=== PATIENT | female | born 1980 | race Caucasian/White ===

== ENCOUNTER 2018-03-27 09:30 | Emergency (ER) | payer OTHER ==
[2018-03-27] MEDS ORDERED: ONDANSETRON 4 MG/2 ML VIAL IVP ONE (10:14)
[2018-03-27] MEDS ORDERED: fentaNYL 100 MCG/2 ML INJ IVP ONE ×2 (10:14→10:36)
[2018-03-27] MEDS ORDERED: ONDANSETRON 4 MG/2 ML VIAL ONE (10:15)
[2018-03-27] MEDS ORDERED: fentaNYL 100 MCG/2 ML INJ ONE (10:15)
[2018-03-27] MEDS ORDERED: IOPAMIDOL (ISOVUE-300) 100 ML BTL ONE (10:21)
--- NOTE | 2018-03-27 10:25 | EDPHY ---
H & P Time Seen by Provider: 03/27/18 09:53 HPI/ROS: CHIEF COMPLAINT: Abdominal pain HISTORY OF PRESENT ILLNESS: Patient sent over from Dr. Carrera's office. The doctor did call me to tell me about patient's presentation. Patient states that yesterday morning when she woke up she had lower abdominal pain. Initially felt pain in the center of her abdomen. She describes it as intense and"dagger like". She did go to a spin class in the morning and noticed the pain significantly then. The sharp dagger like pain is off and on. She says since it started yesterday it has gotten worse. She was unable to sleep well last night. She felt feverish and chilled. She has had multiple episodes of diarrhea and nausea but no vomiting. Also with bilateral low back pain consistent with being on her period, which she is on right now. She states it does feel similar to an ovarian cyst that she had 10 years ago which required surgical intervention. Also states she has a little bit bloated. She denies dysuria. No upper respiratory symptoms. No blood in stool. REVIEW OF SYSTEMS: Constitutional: No fever, some chills. Eyes: No discharge. ENT: No sore throat. Cardiovascular: No chest pain, no palpitations. Respiratory: No cough, no shortness of breath. Gastrointestinal: Per HPI. Genitourinary: No dysuria. Musculoskeletal: Bilateral low back pain, no extremity complaints, no neck pain Skin: No rashes. Neurological: No headache. General Appearance: Alert, no distress. Eyes: Pupils equal and round no pallor or injection. ENT, Mouth: Mucous membranes moist. Oropharynx clear, no lymphadenopathy. Respiratory: There are no retractions, lungs are clear to auscultation. Cardiovascular: Regular rate and rhythm. Gastrointestinal: Abdomen is soft, bowel sounds normal. Tenderness to palpation most in the right lower quadrant without guarding. Rovsing sign positive. Psoas sign positive. Neurological: Awake and alert no focal deficits. Skin: Warm and dry, no rashes. Musculoskeletal: Neck is supple nontender. Extremities are symmetrical, full range of motion, no edema. Psychiatric: Patient is oriented X 3, there is no agitation. Medical/surgical history: Anxiety, Lyme disease as child, ovarian cyst with laparoscopic. Pelvic fracture. Social history: Denies tobacco or drugs. Smoking Status: Former smoker Constitutional: Initial Vital Signs Temperature (C) 36.9 C 03/27/18 09:41 Heart Rate 102 H 03/27/18 09:41 Respiratory Rate 18 03/27/18 09:41 Blood Pressure 145/91 H 03/27/18 09:41 O2 Sat (%) 97 03/27/18 09:41 O2 Delivery Mode Room Air Allergies/Adverse Reactions: No Known Allergies Allergy (Unverified 03/27/18 09:40) Home Medications: Medication Instructions Recorded Lexapro 03/27/18 Propranolol Sr 03/27/18 Medical Decision Making - Diagnostics Imaging Results: Imaging Impressions Abdomen CT 03/27/18 10:15 Impression: 1. Negative for acute appendicitis. 2. Fluid-filled bowel, as can be seen with enterocolitis. 3. Pedunculated 1.4 cm fibroid arising from the left uterine fundus. Findings and recommendations discussed with Marivel Izquierdo MD at 1117 hour, 03/27/2018. Imaging: Discussed imaging studies w/ promotions representative Radiologist (no appendicitis) ED Course/Re-evaluation: 11:10 a.m., re-evaluate after CT scan. Patient still in significant pain. 11:[address] results with patient, likely colitis, no signs of appendicitis. Will try p.o. Challenge. Still in pain. Differential Diagnosis: Differential diagnosis includes but is not limited to appendicitis, ovarian cyst , pyelonephritis, enteritis, colitis. After evaluation including labs and CT scan no evidence of appendicitis, urinary tract infection, bowel obstruction. Likely colitis per Radiology report. Patient with fairly significant pain requiring multiple doses of opiate medications. Will also send home with 6 pack of [place]. Strongly recommended she get rechecked tomorrow by her primary care physician or return to the emergency department if symptoms worsen as detailed in discharge instructions. Also with mild hypokalemia treated with oral potassium in the emergency department. - Data Points Laboratory Results: Laboratory Results 03/27/18 09:55 03/27/18 03/27/18 09:56 09:55 WBC 7.49 10^3/uL 10^3/uL (3.80-9.50) RBC 4.82 10^6/uL 10^6/uL (4.18-5.33) Hgb 15.2 g/dL g/dL (12.6-16.3) Hct 44.8 % % (38.0-47.0) MCV 92.9 fL fL (81.5-99.8) MCH 31.5 pg pg (27.9-34.1) MCHC 33.9 g/dL g/dL (32.4-36.7) RDW 12.4 % % (11.5-15.2) Plt Count 231 10^3/uL 10^3/uL (150-400) MPV 9.4 fL fL (8.7-11.7) Neut % (Auto) 85.1 % H % (39.3-74.2) Lymph % (Auto) 8.7 % L % (15.0-45.0) Stokes % (Auto) 5.1 % % (4.5-13.0) Eos % (Auto) 0.3 % L % (0.6-7.6) Baso % (Auto) 0.3 % % (0.3-1.7) Nucleat RBC Rel Count 0.0 % % (0.0-0.2) Absolute Neuts (auto) 6.38 10^3/uL 10^3/uL (1.70-6.50) Absolute Lymphs (auto) 0.65 10^3/uL L 10^3/uL (1.00-3.00) Absolute Monos (auto) 0.38 10^3/uL 10^3/uL (0.30-0.80) Absolute Eos (auto) 0.02 10^3/uL L 10^3/uL (0.03-0.40) Absolute Basos (auto) 0.02 10^3/uL 10^3/uL (0.02-0.10) Absolute Nucleated RBC 0.00 10^3/uL 10^3/uL (0-0.01) Immature Gran % 0.5 % % (0.0-1.1) Immature Gran # 0.04 10^3/uL 10^3/uL (0.00-0.10) POC Sodium 141 mEq/L mEq/L (135-145) POC Potassium 3.1 mEq/L L mEq/L (3.3-5.0) POC Chloride 105.0 mEq/L mEq/L (97-110) POC Total CO2 22 mEq/L mEq/L (22-31) POC BUN 10 mg/dL mg/dL (7-23) POC Creatinine 0.9 mg/dL mg/dL (0.6-1.0) POC Glucose 105 mg/dL H mg/dL (70-100) POC Calcium 8.9 mg/dL mg/dL (8.5-10.4) Medications Given: Discontinued Medications Hydrocodone Bitart/Acetaminophen ([place] 5/325mg Prepack#6) 1 btl TAKEHOME EDNOW ONE Stop: 03/27/18 11:32 Last Admin: 03/27/18 11:46 Dose: 1 btl Fentanyl (Sublimaze) 50 mcg IVP EDNOW ONE Stop: 03/27/18 10:15 Last Admin: 03/27/18 10:19 Dose: 50 mcg Fentanyl (Sublimaze) 50 mcg IVP EDNOW ONE Stop: 03/27/18 10:37 Last Admin: 03/27/18 10:46 Dose: 50 mcg Hydromorphone HCl (Dilaudid) 0.5 mg IVP EDNOW ONE Stop: 03/27/18 11:05 Last Admin: 03/27/18 11:11 Dose: 0.5 mg Hydromorphone HCl (Dilaudid) 0.5 mg IVP EDNOW ONE Stop: 03/27/18 11:41 Last Admin: 03/27/18 11:42 Dose: 0.5 mg Sodium Chloride (Ns) 1,000 mls @ 0 mls/hr IV EDNOW ONE; Wide Open PRN Reason: Protocol Stop: 03/27/18 10:37 Last Admin: 03/27/18 10:00 Dose: 1,000 mls Sodium Chloride (Ns) 1,000 mls @ 0 mls/hr IV EDNOW ONE; Wide Open PRN Reason: Protocol Stop: 03/27/18 10:37 Last Admin: 03/27/18 10:50 Dose: 1,000 mls Ketorolac Tromethamine (Toradol) 15 mg IVP EDNOW ONE Stop: 03/27/18 10:37 Last Admin: 03/27/18 10:47 Dose: 15 mg Ondansetron HCl (Zofran) 4 mg IVP EDNOW ONE Stop: 03/27/18 10:15 Last Admin: 03/27/18 10:17 Dose: 4 mg Ondansetron HCl (Zofran Odt 4 Mg Prepack#2) 1 btl TAKEHOME EDNOW ONE Stop: 03/27/18 11:32 Last Admin: 03/27/18 11:50 Dose: 1 btl Potassium Chloride (Potassium Chloride Oral Liquid) 20 meq PO EDNOW ONE Stop: 03/27/18 11:42 Last Admin: 03/27/18 12:17 Dose: 20 meq Potassium Chloride (Potassium Chloride Oral Liquid) 20 meq PO ONCE ONE Stop: 03/27/18 12:06 Last Admin: 03/27/18 12:08 Dose: Not Given Point of Care Test Results: Chemistry 03/27/18 09:56 POC Sodium 141 mEq/L mEq/L (135-145) POC Potassium 3.1 mEq/L L mEq/L (3.3-5.0) POC Chloride 105.0 mEq/L mEq/L (97-110) POC Total CO2 22 mEq/L mEq/L (22-31) POC BUN 10 mg/dL mg/dL (7-23) POC Creatinine 0.9 mg/dL mg/dL (0.6-1.0) POC Glucose 105 mg/dL H mg/dL (70-100) POC Calcium 8.9 mg/dL mg/dL (8.5-10.4) Urine Collection Date 03/27/18 Collection Time 09:45 HCG Results Negative Urine Dip Collection Date 03/27/18 Collection Time 09:45 Specific [place] (1.002-1.030) 1.025 PH (5.0-7.5) 5.5 Leukocytes (Negative) Negative Nitrites (Negative) Negative Protein (Negative) Negative Glucose (Negative) Negative Ketones (Negative) 2+ Urobilnogen (0.2-1.0 EU) 0.2 Bilirubin (Negative) Test Not Performed Blood (Negative) 2+ Departure - Departure Disposition: Home, Routine, Self-Care Clinical Impression: Colitis Abdominal pain Qualifiers: Abdominal location: lower abdomen, unspecified Qualified Code(s): R10.30 - Lower abdominal pain, unspecified Condition: Fair Instructions: Colitis (ED) Additional Instructions: Drink plenty of fluids, you can try Pepto-Bismol [id number] as discussed. Also you have medications for pain and nausea from the emergency department. I think it would be a good idea for you to be re-evaluated tomorrow by her primary care doctor or in the emergency department. Definitely return to the emergency department if he developed worsening pain, fevers, blood in stool or other new concerns. Referrals: Roxanne Mosley MD [Primary Care Provider] - As per Instructions
[2018-03-27] MEDS ORDERED: NS 1,000 ML IV ONE ×2 (10:36)
[2018-03-27] MEDS ORDERED: KETOROLAC 30 MG/1 ML SDV IVP ONE (10:36)
[2018-03-27] MEDS ORDERED: KETOROLAC 15 MG/1 ML SDV ONE (10:37)
[2018-03-27 10:51] LABS: PLATELET COUNT 231 10^3/uL (150-400)
[2018-03-27] MEDS ORDERED: HYDROmorphONE/DILAUDID 2 MG/ML INJ IVP ONE ×2 (11:04→11:40)
[2018-03-27] MEDS ORDERED: ONDANSETRON 4MG PREPACK#2 BTL TAKEHOME ONE (11:31)
[2018-03-27] MEDS ORDERED: HYDROCOD/APAP 5/325 PREPACK#6 BTL TAKEHOME ONE (11:31)
[2018-03-27] MEDS ORDERED: HYDROmorphONE/DILAUDID 1 MG/ML INJ ONE (11:37)
[2018-03-27] MEDS ORDERED: POTASSIUM CL 20 MEQ/15 ML UDCUP PO ONE ×2 (11:41→12:05)
[2018-03-27] MEDS ORDERED: POTASSIUM CL 20 MEQ TAB ONE (11:52)
[2018-03-27 12:47] VITALS: BP 127/75
== END 2018-03-27 12:37 | disposition home or self-care (01) ==
LOC: CED 09:30
DX: K52.9 Noninfective gastroenteritis and colitis, unspecified (principal); E86.9 Volume depletion, unspecified
CPT/HCPCS: 74177-PO; 80048-PO; 96374; J1170; J1885; J2405; J3010; Q9967